=== PATIENT | male | born 1995 | race African-American/Black ===

== ENCOUNTER 2018-01-29 02:37 | Emergency (ER) | payer SELFPAY ==
--- NOTE | 2018-01-29 03:21 | RADIOLOGY REPORT (SQ) ---
CLINICAL HISTORY: Pain with movement and ambulation COMPARISON: None. TECHNIQUE: XR FOOT 3 OR MORE VIEWS 01/29/2018 2:40 AM CDT FINDINGS: There is no fracture. Joint spaces are preserved. Soft tissues are unremarkable. IMPRESSION: No acute osseous findings.
[2018-01-29] MEDS ORDERED: IBUPROFEN 600 MG TABLET PO ONE (03:49)
--- NOTE | 2018-01-29 03:54 | ER Document Report ---
ED General - General Chief Complaint: Foot Pain Stated Complaint: TOE INJURY Time Seen by Provider: 01/29/18 02:54 Notes: Patient is a 22-year-old male without chronic medical problems who presents with 24 hours of pain to his right great toe. Patient states that this started after he was playing in the yard with some of his cousins and may have hit his foot on his cousins car rim. He notes a dull, throbbing, constant pain, worsened by walking. He has not tried nothing to improve the pain. No history of similar injury in the past. Denies any additional injuries or concerns. He has not seen his general doctor regarding today's concerns. TRAVEL OUTSIDE OF THE [place] IN LAST 30 DAYS: No - Related Data Allergies/Adverse Reactions: orange Allergy (Verified 01/29/18 02:38) Past Medical History - General Information source: Patient - Social History Smoking Status: Never Smoker Frequency of alcohol use: None Drug Abuse: None Lives with: Spouse/Significant other Family History: Reviewed & Not Pertinent Review of Systems - Review of Systems Notes: Constitutional: Negative for fever. HENT: Negative for sore throat. Eyes: Negative for visual changes. Cardiovascular: Negative for chest pain. Respiratory: Negative for shortness of breath. Gastrointestinal: Negative for abdominal pain, vomiting or diarrhea. Genitourinary: Negative for dysuria. Musculoskeletal: Positive for right great toe pain Skin: Negative for rash. Neurological: Negative for headaches, weakness or numbness. 10 point ROS negative except as marked above and in HPI. Physical Exam - Vital signs Vitals: Temp Pulse Resp BP Pulse Ox 98.1 F 65 20 120/67 98 01/29/18 02:41 01/29/18 02:41 01/29/18 02:41 01/29/18 02:41 01/29/18 02:41 Interpretation: Normal Notes: PHYSICAL EXAMINATION: GENERAL: Well-appearing, well-nourished and in no acute distress. HEAD: Atraumatic, normocephalic. EYES: sclera anicteric, conjunctiva are normal. ENT: Moist mucous membranes. NECK: Normal range of motion LUNGS: Normal work of breathing HEART: 2+ DP pulses bilaterally EXTREMITIES: Mild swelling to the right great toe with bruising along the lateral aspect of the toe, no pitting or edema. No cyanosis. NEUROLOGICAL: No focal neurological deficits. Moves all extremities spontaneously and on command. PSYCH: Normal mood, normal affect. SKIN: Warm, Dry, normal turgor, no rashes or lesions noted. Course - Re-evaluation Re-evalutation: 01/29/18 03:52 No evidence of a septic joint, gout flare, dislocation, or fracture on exam and imaging. Patient did state that he had a blunt trauma to the toe, there is some mild ecchymosis and soft tissue swelling. Suspect soft tissue contusion. Vitals wnl. At this time, I do not see an indication for labs or further imaging. Will discharge with conservative measures, return precautions, and follow-up recommendations. - Vital Signs Vital signs: Temp Pulse Resp BP Pulse Ox 98.1 F 65 20 120/67 98 01/29/18 02:41 01/29/18 02:41 01/29/18 02:41 01/29/18 02:41 01/29/18 02:41 - Diagnostic Test Radiology reviewed: Image reviewed, Reports reviewed Radiology results interpreted by me: 01/29/18 03:52 Right foot x-ray: No acute fracture or dislocation Discharge - Discharge Clinical Impression: Injury of right great toe Qualifiers: Encounter type: initial encounter Qualified Code(s): S99.921A - Unspecified injury of right foot, initial encounter Condition: Good Disposition: HOME, SELF-CARE Additional Instructions: Your x-ray does not show any acute fracture today. You likely have a soft tissue injury. You should continue to take anti-inflammatories such as ibuprofen 600 mg every 6 hours. Continue to apply ice to the area is much your able. Please follow-up with your primary care physician if you do not have improving your symptoms in the next 1-2 weeks. Please return immediately if you develop weakness, numbness, spreading redness from the area, or any other symptoms that are concerning to you.
[2018-01-29 04:05] VITALS: BP 125/79
== END 2018-01-29 04:11 | disposition home or self-care (01) ==
LOC: ER 02:37
DX: S90.111A Contusion of right great toe without damage to nail, initial encounter (principal); W22.8XXA Striking against or struck by other objects, initial encounter; Z91.018 Allergy to other foods
CPT/HCPCS: 99283